=== PATIENT | female | born 1975 | race Two or more races ===

== ENCOUNTER 2017-05-03 14:35 | Inpatient (IN) ==
[2017-05-03 14:59] LABS: Basophils % 0.4 % (0.0-0.8); Eosinophils # 0.2 10*3/uL (0.0-0.87); Eosinophils % 3.4 % (0.00-10.9); Hematocrit 40.7 VOL% (35.7-47.0); Hemoglobin 13.7 GM/DL (12.0-16.0); Immature Granulocytes % 0.3 %; Immature Granulocytes Absolute 0.02 #; Lymphocytes # 2.3 10*3/uL (1.4-4.0); Lymphocytes % 33.3 % (21.3-54.2); Mean Corpuscular HGB Conc 33.7 GM/DL (32-36); Mean Corpuscular Hemoglobin 30 PG (27-34); Mean Corpuscular Volume 88.7 FL (87-102); Mean Platelet Volume 10.8 FL (9.6-12.0); Monocytes # 0.4 10*3/uL (0.11-0.8); Monocytes % 6.5 % (1.7-12.7); Neutrophils # 3.8 10*3/uL (1.4-7.4); Neutrophils % 56.1 % (38.7-73.9); Platelet Count 193 T/CUMM (130-400); Red Blood Count 4.59 MC/CUMM (3.8-5.5); Red Cell Distribution Width 14.6 % (9.3-17.3); White Blood Count 6.8 T/CUMM (4-12)
[2017-05-03 15:18] LABS: Alanine Aminotransferase 14 U/L (13-56); Albumin 2.9 G/DL (3.4-5.0); Alkaline Phosphatase 69 U/L (45-117); Aspartate Amino Transferase 13 U/L (0-37); Bilirubin,Total < 0.39 MG/DL (0.2-1.0); Blood Urea Nitrogen 7 MG/DL (7-18); Calcium 8.3 MG/DL (8.5-10.1); Glucose 85 MG/DL (74-106); Osmolality,Calculated 275.4 MOS/KG (273-304); Potassium 3.6 MMOL/L (3.5-5.1); Sodium 140 MMOL/L (136-145); Total Protein 6.7 G/DL (6.4-8.3)
[2017-05-03 15:18] LABS: Apearance,Urine CLEAR (Clear); Bacteria,Urine Occasional /HPF (Few); Bilirubin,Urine Negative (Negative); Blood, Urine Negative (Negative); Glucose,Urine (UA) Negative (Negative); Ketones,Urine Negative (Negative); Nitrite,Urine Negative (Negative); Protein,Urine Negative; RBC,Urine <1 /HPF (0-4); Squamous Epithelial Cell,Urine Occasional /HPF (0-10); Urine Color Straw (Yellow); Urine Specific Gravity 1.002 (1.001-1.035); Urine Urobilinogen < 2.0 EU/DL (0.2-1.0); WBC,Urine <1 /HPF (0-6)
--- NOTE | 2017-05-03 15:35 | CT Report ---
Exam: CT abdomen and pelvis without intravenous contrast Clinical History: 41 years,Female, abdominal pain, generalized Technique: Axial computed tomography images of the abdomen and pelvis without intravenous contrast. All CT scans at this facility use one or more dose reduction techniques. Automated exposure control, MA/KV adjustment per patient size (including targeted exam Square dose is matched to indication) or iterative reconstruction technique Comparison: No relevant comparisons Findings: Lower thorax: No acute pathology within the lung bases. Abdomen: Liver: Unremarkable Gallbladder and bile ducts: Unremarkable. No calcified stones. No ductal dilatation. Pancreas: Pancreas is normal. Spleen: Spleen is normal. Adrenals: No adrenal mass. Kidneys and ureters: Normal in size, echotexture and morphology. No hydronephrosis. No ureteral calculus. Stomach and bowel: No evidence of acute gastritis, colitis or enteritis. No bowel obstruction. Appendix: No primary or secondary signs to suggest appendicitis. Pelvis: Bladder: Bladder stones are noted Reproductive: 3.4 cm cyst arising from the right ovary. Abdomen and pelvis: Intraperitoneal space: No pneumoperitoneum. No free intraperitoneal fluid Bones/joints: Villa rods and pedicular screws transfix thoracolumbar junction with stabilized L2 fracture, uncomplicated. Soft tissues: No mass Vasculature: No aortic aneurysm. Atheromatous calcifications noted along the aorta and branch vessels. Lymph nodes: No adenopathy Impression: 1. 3.4 cm right ovarian cyst 2. Urinary bladder stones 3. Other incidental findings as discussed above PROCEDURE INTERPRETED AT [facility] [place] DEPARTMENT OF RADIOLOGY Final Report Signed by: Amaury Cavanaugh MD
--- NOTE | 2017-05-03 15:37 | XRay Report ---
XR chest 1V portable Indication: Generalized abdominal pain Comparison: None Technique: Single frontal view of the chest. Findings: Heart size within normal limits. No focal consolidation, pleural effusion, or pneumothorax. Visualized osseous and surrounding soft tissue structures demonstrate no acute abnormality. Partially visualized thoracolumbar hardware. IMPRESSION: No acute cardiopulmonary process demonstrated. PROCEDURE INTERPRETED AT [facility] DEPARTMENT OF RADIOLOGY Final Report Signed by: Dr Waylon Hunter
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
[2017-05-03] MEDS ORDERED: ONDANSETRON 4 MG/2 ML VIAL ONE (15:52)
[2017-05-03] MEDS ORDERED: ONDANSETRON 4 MG/2 ML VIAL IV STA (15:53)
--- NOTE | 2017-05-03 16:27 | Ultrasound Report ---
US gallbladder Indication: Right upper quadrant/epigastric pain. Comparison: None. Technique: Multiple longitudinal and transverse real-time sonographic images of the right upper quadrant of the abdomen are obtained. Findings: The liver measures 14.2 cm and demonstrates normal echogenicity without focal abnormality on submitted images. Small-volume cholelithiasis noted. There is no significant gallbladder wall thickening or distention.. The common duct measures 0.5 cm in diameter and there is no evidence of significant intrahepatic ductal dilation. Right kidney measures 9.7 cm. Pancreas partially obscured. IMPRESSION: Cholelithiasis. PROCEDURE INTERPRETED AT [facility] DEPARTMENT OF RADIOLOGY Final Report Signed by: Dr Waylon Hunter
--- NOTE | 2017-05-03 19:44 | Nuclear Medicine Report ---
Exam: Nuclear medicine hepatobiliary scan Date: May 03, 2017 Comparison: None Reason: Severe right upper quadrant pain. Known cholelithiasis Technique: The patient was administered 5.0 mCi of technetium 99m Choletec IV. Images of the right upper quadrant were then acquired over 90 minutes. Patient could not tolerate p.O. liquids. Findings: Diffuse symmetric uptake throughout the liver parenchyma. Visualization of the gallbladder and common bile duct at 10 minutes. No visualization of bowel at the 90 minute interval. Impression: 1. Radiotracer accumulation is seen within the gallbladder, suggesting patency of the cystic duct. 2. No demonstratable bowel activity at 90 minutes. Findings may represent biliary dyskinesia and or possibly distal obstruction. 12 hour image will be obtained PROCEDURE INTERPRETED AT [facility] DEPARTMENT OF RADIOLOGY Final Report Signed by: Amaury Cavanaugh MD
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
[2017-05-03] MEDS ORDERED: HYDROmorphone 2 MG/1 ML VIAL IV STA (20:12)
[2017-05-03] MEDS ORDERED: HYDROmorphone 2 MG/1 ML VIAL ONE (20:13)
[2017-05-03] MEDS ORDERED: fentaNYL 75 MCG/HR PATCH TRANSDERM SCH (21:00)
[2017-05-03] MEDS ORDERED: ONDANSETRON 4 MG/2 ML VIAL IV PRN (21:39)
[2017-05-03] MEDS ORDERED: ACETAMINOPHEN 325 MG TABLET PO PRN (21:39)
[2017-05-03] MEDS: BACLOFEN 10 MG TABLET PO SCH (22:15)
[2017-05-03] MEDS: PREGABALIN 100 MG CAPSULE PO SCH (22:15)
[2017-05-03] MEDS: oxyCODONE/ACETAMINOPHEN 5-325 MG TABLET PO SCH (22:15)
[2017-05-03] MEDS: LACTATED RINGERS 1,000 ML IV SCH (22:22)
[2017-05-03] MEDS: PIPERACILLIN/TAZOBACTAM 3,375 MG in SODIUM CHLORIDE 0.9% 100 ML IV SCH (22:57)
[2017-05-04] MEDS: ALBUTEROL/IPRATROPIUM 3 ML NEB RESP TX SCH ×4 (00:10→19:56)
[2017-05-04] MEDS ORDERED: FAMOTIDINE 20 MG TABLET PO ONE (05:42)
[2017-05-04] MEDS ORDERED: LORazepam 1 MG TABLET PO ONE (05:42)
[2017-05-04] MEDS ORDERED: ACETAMINOPHEN 500 MG TABLET PO ONE (05:43)
[2017-05-04] MEDS ORDERED: GABAPENTIN 400 MG CAPSULE PO ONE (06:00)
[2017-05-04] MEDS: PIPERACILLIN/TAZOBACTAM 3,375 MG in SODIUM CHLORIDE 0.9% 100 ML IV SCH ×3 (06:12→23:50)
[2017-05-04] MEDS: HYDROmorphone 2 MG/1 ML VIAL IV PRN ×2 (06:12→09:58)
[2017-05-04 06:24] LABS: Basophils % 0.1 % (0.0-0.8); Eosinophils # 0.1 10*3/uL (0.0-0.87); Eosinophils % 1.6 % (0.00-10.9); Hematocrit 42.2 VOL% (35.7-47.0); Hemoglobin 14.1 GM/DL (12.0-16.0); Immature Granulocytes % 0.3 %; Immature Granulocytes Absolute 0.02 #; Lymphocytes # 2.4 10*3/uL (1.4-4.0); Lymphocytes % 33.8 % (21.3-54.2); Mean Corpuscular HGB Conc 33.4 GM/DL (32-36); Mean Corpuscular Hemoglobin 30 PG (27-34); Mean Corpuscular Volume 89.2 FL (87-102); Mean Platelet Volume 11.4 FL (9.6-12.0); Monocytes # 0.4 10*3/uL (0.11-0.8); Neutrophils # 4.1 10*3/uL (1.4-7.4); Neutrophils % 58.2 % (38.7-73.9); Platelet Count 200 T/CUMM (130-400); Red Blood Count 4.73 MC/CUMM (3.8-5.5); Red Cell Distribution Width 14.8 % (9.3-17.3)
[2017-05-04 07:09] LABS: Albumin 3.1 G/DL (3.4-5.0); Bilirubin,Total 0.6 MG/DL (0.2-1.0); Calcium 8.6 MG/DL (8.5-10.1); Magnesium 1.9 MG/DL (1.8-2.4); Osmolality,Calculated 275.4 MOS/KG (273-304); Potassium 3.9 MMOL/L (3.5-5.1); Total Protein 6.7 G/DL (6.4-8.3)
--- NOTE | 2017-05-04 08:14 | Nuclear Medicine Report ---
History: Abdominal pain Date: 05/04/2017 Study: Nuclear medicine biliary scan delayed imaging Comparison exam: 05/03/2017 biliary scan A 15 hour delayed image was acquired over the upper abdomen. There is radiotracer within the intestinal tract compatible with patency of the common bile duct. There is still a significant amount of residual radiotracer within the gallbladder. Impression: Contrast material is present within the intestinal tract compatible with gross patency of the common bile duct PROCEDURE INTERPRETED AT [facility] DEPARTMENT OF RADIOLOGY Final Report Signed by: Dr. Manju Alva
--- NOTE | 2017-05-04 08:20 | XRay Report ---
History: Abdominal pain Date: 05/04/2017 Study: Flat and decubitus views of the abdomen Comparison exam: Abdominal x-ray April 06, 2017 There is no evidence of pneumoperitoneum. The bowel gas pattern is nonobstructive without gross mass lesion. There is a moderate amount of scattered stool in the normal caliber colon. No radiopaque calculi are seen. Surgical rods overlie the thoracolumbar spine. There is prominent degenerative disc disease at L4-L5. Impression: No definite acute process. Moderate amount of retained stool in the colon PROCEDURE INTERPRETED AT [facility] DEPARTMENT OF RADIOLOGY Final Report Signed by: Dr. Manju Alva
[2017-05-04] MEDS: FLUoxetine 20 MG CAPSULE PO SCH (08:28)
[2017-05-04] MEDS: oxyCODONE/ACETAMINOPHEN 5-325 MG TABLET PO SCH ×3 (08:28→20:52)
[2017-05-04] MEDS: BACLOFEN 10 MG TABLET PO SCH ×3 (08:28→20:52)
[2017-05-04] MEDS: PREGABALIN 100 MG CAPSULE PO SCH ×3 (08:28→20:52)
[2017-05-04] MEDS ORDERED: HYDROmorphone 2 MG/1 ML VIAL IV PRN (09:49)
[2017-05-04] MEDS: PANTOPRAZOLE 40 MG VIAL IV SCH (12:03)
[2017-05-04] MEDS: LACTATED RINGERS 1,000 ML IV SCH ×2 (12:04→13:49)
[2017-05-04] MEDS ORDERED: LIDOCAINE 1%/EPI INJ 20 ML VIAL ONE (13:14)
[2017-05-04] MEDS ORDERED: ONDANSETRON 4 MG/2 ML VIAL ONE (13:31)
[2017-05-04] MEDS ORDERED: ROCURONIUM 100 MG/10 ML VIAL IV ONE (13:31)
[2017-05-04] MEDS ORDERED: PROPOFOL 200 MG/20 ML VIAL IV ONE (13:31)
[2017-05-04] MEDS ORDERED: ACETAMINOPHEN 1,000 MG/100 ML VIAL IV ONE (13:46)
[2017-05-04] MEDS ORDERED: ENOXAPARIN 40 MG/0.4 ML SYRINGE SUBCUT SCH (14:00)
[2017-05-04] MEDS ORDERED: SUGAMMADEX 200 MG/2 ML VIAL IV ONE (14:18)
--- NOTE | 2017-05-04 14:33 | Operative Note ---
Date of procedure: 05/04/17 Pre-op diagnosis: Symptomatic cholelithiasis Post-op diagnosis: same (Same) Procedure: Procedure performed: Laparoscopic cholecystectomy with intraoperative cholangiogram next Procedure in detail: After informed consent was obtained, patient taken operating suite lies upon the operating table. After general anesthesia was induced the abdomen was prepped and draped in usual sterile fashion. A procedural pause local anesthetic and strength skin subcutaneous tissue just above the umbilicus. Incision was made and dissection carried down through skin and soft tissue. Fascia grasped with Lodi's and elevated. Fascial incision was made. Abdominal cavity was entered bluntly. Finger sweep revealed no adhesions. Chandra trocar placed under direct visualization. Pneumoperitoneum achieved. The camera inserted bowel mesentery inspected found to be free of any violation. Next the patient was placed in reverse Trendelenburg position rotated to the left. 2 5 mm trochars placed in the right upper quadrant 11 mm subxiphoid trocar was placed all under visualization. The gallbladder was grasped and retracted superiorly. Did not appear to be acutely inflamed. Infundibulum the gallbladder retracted toward the right hip. Within the gallbladder multiple stones were visible. Dissection was carried out from lateral to medial approach and the triangle of Jesús and the cystic duct and cystic artery were identified and isolated. Using a critical view technique these only 2 structures entering the gallbladder. A clip was placed the junction of the cystic duct neck of the gallbladder and partial transection made on the cystic duct. Cholangiocatheter catheter initially had difficulty going in and out Milt back at least 3 or 4 stones from the cystic duct. I was then able to get the catheter to be inserted easily and secured it in place. Intraoperative glandular and performed. Cystic duct common bile duct intra-and extrahepatic ducts all filled with no filling defects identified. Contrast was seen entering the small bowel. The common and intrahepatic ducts did fill appear slightly dilated. There did not appear to be a mass-effect or any occlusion of the cystic duct. The cholangiocatheter was removed and 2 clips placed on the cystic duct just distal to the partial transection the transection completed. Cystic artery was triple clipped and transected how long the gallbladder wall. Gallbladder was then removed from gallbladder fossa using hook cautery and placed in Endo Catch sac removed to the Chandra trocar site. Pneumoperitoneum was reachieved and right upper quadrant thoroughly irrigated and suctioned. The clips inspected found to be intact no leakage of bilious or sanguinous fluid. There is excellent hemostasis. The trochars were removed as the abdomen desufflated. Fascia at the Chandra trocar site closed using 0 Vicryl [id number] interrupted suture. Wounds were thoroughly irrigated and suction. The deep dermal layer closed with 3-0 Vicryl. 4-0 Monocryl used to close skin. Sterile dressings applied. Patient was extubated and taken recovery room in stable condition. All lap and needle counts correct at the end of the case. Anesthesia: GETA Surgeon / Physician: Yang Valladares Estimated blood loss: other (Less than 10 cc) Specimens: other (Gallbladder) Condition: stable Disposition: PACU Results - Labs CBC & BMP: 05/04/17 05:32 05/04/17 05:32 Discharge Plan - Discharge Medications No Action Pregabalin [Lyrica] 200 mg PO TID Oxycodone HCl/Acetaminophen [Oxycodone-Acetaminophen 10-325] 1 tablet PO TID Baclofen [Baclofen] 10 mg PO TID fentaNYL [Fentanyl 75 mcg/hr Patch] 1 patch TOP Q72H Fluoxetine HCl [Fluoxetine HCl] 40 mg PO QAM - Follow Up or Referral - Forms/Instructions
[2017-05-04] MEDS ORDERED: SEVOFLURANE 1 UNIT/15 MINUTE INH ONE (14:42)
[2017-05-04] MEDS ORDERED: HYDROmorphone 2 MG/1 ML VIAL ONE (14:42)
[2017-05-04] MEDS ORDERED: fentaNYL 100 MCG/2 ML VIAL ONE (14:43)
[2017-05-04] MEDS ORDERED: LACTATED RINGERS 1,000 ML IV ONE (14:43)
[2017-05-04] MEDS ORDERED: MIDAZOLAM 2 MG/2 ML VIAL ONE (14:43)
--- NOTE | 2017-05-04 14:55 | Anesthesia Post-Op ---
Anesthesia Post OP - Post Ansesthetic Evaluation Patient seen in post op: Yes Resp: within normal limits CV: within normal limits Mental: within normal limits Temp: within normal limits [id number]: within normal limits Nausea and Vomiting: within normal limits Pain: within normal limits
--- NOTE | 2017-05-04 16:31 | Fluoroscopy Report ---
Cholangiogram May 04, 2017 Indication: Right upper quadrant pain, postcholecystectomy Comparison: No relevant comparisons Technique: Interoperative cholangiogram was performed in routine fashion after cannulation of the cystic duct. Fluoroscopy time recorded at 34 seconds. Radiation dose calculated 0.347 mGym2 Findings: Contrast flows freely through the dilated common bile duct tapering normally to the ampulla. No intraluminal filling defects. No extravasation. Impression: Mildly dilated common bile duct with no evidence of ductal stones or distal obstruction. PROCEDURE INTERPRETED AT [facility] DEPARTMENT OF RADIOLOGY Final Report Signed by: Amaury Cavanaugh MD
[2017-05-05] MEDS: ALBUTEROL/IPRATROPIUM 3 ML NEB RESP TX SCH ×2 (00:05→07:05)
[2017-05-05] MEDS: LACTATED RINGERS 1,000 ML IV SCH ×2 (05:55→05:56)
[2017-05-05] MEDS: PIPERACILLIN/TAZOBACTAM 3,375 MG in SODIUM CHLORIDE 0.9% 100 ML IV SCH (07:23)
[2017-05-05 07:45] VITALS: BP 126/75
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
[2017-05-05] MEDS: BACLOFEN 10 MG TABLET PO SCH (08:16)
[2017-05-05] MEDS: FLUoxetine 20 MG CAPSULE PO SCH (08:16)
[2017-05-05] MEDS: oxyCODONE/ACETAMINOPHEN 5-325 MG TABLET PO SCH (08:16)
[2017-05-05] MEDS: PREGABALIN 100 MG CAPSULE PO SCH (08:17)
[2017-05-05] MEDS: PANTOPRAZOLE 40 MG VIAL IV SCH (08:18)
[2017-05-05] MEDS ORDERED: ENOXAPARIN 40 MG/0.4 ML SYRINGE SUBCUT SCH (09:00)
--- NOTE | 2017-05-05 09:53 | Discharge Summary ---
Hospital Course - Hospital Course Hospital Course: The patient is a 41-year-old paraplegic patient admitted with symptomatic cholelithiasis who underwent lap scopic cholecystectomy with intraoperative cholangiogram with Dr. Valladares on May 04, 2017. Postoperatively, her hospital course was uneventful. She was tolerating oral intake with appropriate pain management the time of discharge. She is passing flatus. She is confident that her son to care for her can continue to care for her current condition. She is provided with postoperative instructions and postoperative appointment. She was discharged home in good condition. No complicate to note. Diagnosis - Discharge Diagnosis (1) Cholelithiasis Status: Acute Specialty Discharge - Follow Up or Referrals Follow up with: Yang Valladares MD [Physician] - 05/18/17 9:30 am (2 wks) Discharge Plan - Discharge Data Disposition: Disch To Home/Self Care Condition at Discharge: Stable Discharge Diet: advance to your usual diet Activity: no lifting (Greater than 10-15 pound) Hygiene: may shower Contact your physician if you experience:: fever over 101, Redness or swelling, Nausea/Vomiting, Shortness of breath, Bleeding, pain uncontrolled by pain medications Wound / Dressing Care Instructions: Keep surgical incisions clean, dry and covered - Discharge Medications Continue Pregabalin [Lyrica] 200 mg PO TID Oxycodone HCl/Acetaminophen [Oxycodone-Acetaminophen 10-325] 1 tablet PO TID Baclofen 10 mg PO TID fentaNYL [Fentanyl 75 mcg/hr Patch] 1 patch TOP Q72H Fluoxetine HCl 40 mg PO QAM - Follow Up or Referral Follow Up: Yang Valladares MD [Physician] - 05/18/17 9:30 am (2 wks) - Forms/Instructions Instructions: Laparoscopic Cholecystectomy (DC) Exam - Constitutional Vitals: Period Temp Pulse Resp BP Sys/Obrien Pulse Ox Last 24 Hr 97.3 F-98.3 F 58-97 12-20 126-163/72-96 95-100 General appearance: no acute distress - Eye Eye exam: Absent: scleral icterus - Respiratory Respiratory exam: Present: clear to auscultation bilaterally - Cardiovascular Cardiovascular exam: Present: regular rate and rhythm - GI/Abdominal GI/Abdominal exam: Present: hypoactive bowel sounds, tenderness (Appropriate postoperative tenderness), soft, other (Surgical incisions are clean, dry and intact). Absent: distended - Extremities Exam Extremities exam: Absent: calf tenderness, edema - Neurological Exam Neurological exam: Present: alert, oriented X3 - Psychiatric Psychiatric exam: Present: normal affect, normal mood - Skin Skin exam: Present: normal color Discharge Results Procedures and tests throughout hospitalization: Laparoscopic cholecystectomy with intraoperative cholangiogram on 05/04/[address] Valladares; pathology pending at the time of discharge - Imaging and Cardiology Procedure: Chest x-ray: image reviewed by me, report reviewed by me (No acute findings), CT Abdomen and Pelvis: image reviewed by me, report reviewed by me ( Right ovarian cyst incidentally noted; no gallbladder findings identified), Ultrasound: report reviewed by me (Gallbladder ultrasound identified gallstones ; no gallbladder wall thickening or distention. Common bile duct measured at 0.5 cm without evidence of dilation.) - Additional Comments HIDA scan with findings suggestive of biliary dyskinesia. DS: Provider Date of admission: 05/03/17 19:58 Primary care physician: . No PCP Attending physician on admission: Yang Valladares MD Consults: 05/03/17 21:39 Consult to Case Mgmt/Social Srvs [CONS] Routine Reason for Case Mgmt/Social Srvs: Rehab Other Consult Comment: Home situation Consult to Physical Therapy [CONS] Routine Reason for Physical Therapy: Weakness 05/05/17 07:36 Consult to Case Mgmt/Social Srvs [CONS] Routine Reason for Case Mgmt/Social Srvs: Home Health Discharge Planning Consult Comment: patient needs transportation home today Discharging clinician: Jasmyn Lou PA-C
[2017-05-05] MEDS ORDERED: INFLUENZA VIRUS VACCINE 0.5 ML SYRINGE IM ONE (11:10)
--- NOTE | 2017-05-05 11:25 | Pathology Report from [facility] ---
[facility] – [place] ACCESSION # : [id number] PATIENT NAME : Benita Armstrong ORDERING DR : Yang Valladares MD CLINICAL HX: Bliary dyskinesia - Cholecystitis POST-OP DX: Same SPECIMEN INFO: Gallbladder GROSS DESCRIPTION: The specimen is received in formalin labeled with the patients name and consists of a 9.1 x 2.8 cm intact gallbladder. The serosa is pink-abel, smooth. The wall averages 0.2 cm in thickness. The mucosa is hyperemic, yellow-abel. The lumen contains hyperemic viscous yellow-green bile admixed with multiple lobulated yellow stones collectively measuring 4.0 x 2.7 cm and ranging in size from 0.2 cm up to 0.5 cm. Dog [employer] Animal Sitter sections submitted in one cassette. DIAGNOSIS FOR BENITA ARMSTRONG: GALLBLADDER: Chronic cholecystitis. Cholelithiasis. Cholesterolosis. No evidence of malignancy. COLLECTED DATE: 05/04/2017 [facility] REPORT DATE: 05/05/2017 ELECTRONICALLY SIGNED BY: Silvia Johnson III, M.D. 05/05/2017 - 9:55:51 FERMÍN
== END 2017-05-05 13:05 | disposition home health service (06) | DRG 418 ==
LOC: EDBD → EDUNIT# → N.ED 14:35 → N.EDINP 19:58 → N.3E 21:03
PROVIDERS: ADMIT Surgery; ATTEND Surgery
PROC: LAPCHOL (2017-05-04 13:31)

== ENCOUNTER 2019-07-04 06:09 | Inpatient (IN) ==
[2019-07-04] MEDS ORDERED: SODIUM CHLORIDE 0.9% 1,000 ML IV STA ×2 (06:35→08:09)
[2019-07-04] MEDS ORDERED: ONDANSETRON 4 MG/2 ML VIAL ONE (06:35)
[2019-07-04] MEDS ORDERED: ONDANSETRON 4 MG/2 ML VIAL IV STA ×2 (06:35→08:31)
[2019-07-04 06:40] LABS: Basophils % 0.4 % (0.0-0.8); Eosinophils # 0.2 10*3/uL (0.0-0.87); Eosinophils % 3.2 % (0.00-10.9); Hematocrit 33.5 VOL% (35.7-47.0); Hemoglobin 10.4 GM/DL (12.0-16.0); Immature Granulocytes % 0.1 %; Immature Granulocytes Absolute 0.01 #; Lymphocytes # 2.3 10*3/uL (1.4-4.0); Mean Corpuscular Volume 80.7 FL (87-102); Mean Platelet Volume 10.6 FL (9.6-12.0); Monocytes % 8.5 % (1.7-12.7); Neutrophils % 53.8 % (38.7-73.9); Platelet Count 258 T/CUMM (130-400); Red Blood Count 4.15 MC/CUMM (3.8-5.5); Red Cell Distribution Width 16.8 % (9.3-17.3); White Blood Count 6.8 T/CUMM (4-12)
[2019-07-04 06:52] LABS: Alanine Aminotransferase 17 U/L (13-56); Albumin 3.1 G/DL (3.4-5.0); Alkaline Phosphatase 68 U/L (45-117); Aspartate Amino Transferase 10 U/L (0-37); Bilirubin,Total < 0.39 MG/DL (0.2-1.0); Blood Urea Nitrogen 11 MG/DL (7-18); Calcium 7.9 MG/DL (8.5-10.1); Estimated Glom Filtration Rate 124 ML/MIN; Glucose 94 MG/DL (74-106); Osmolality,Calculated 281.1 MOS/KG (273-304)
[2019-07-04 07:06] LABS: Apearance,Urine CLEAR (Clear); Bacteria,Urine Many /HPF (Few); Bilirubin,Urine Negative (Negative); Blood, Urine Moderate mg/dL (Negative); Glucose,Urine (UA) Negative (Negative); Hyaline Casts,Urine 1 /LPF (0-3); Ketones,Urine 20 mg/dL (Negative); Mucus,Urine Occasional /LPF (Occasional); Nitrite,Urine Positive (Negative); Protein,Urine 100 MG/DL; RBC,Urine 274 /HPF (0-4); Squamous Epithelial Cell,Urine Occasional /HPF (0-10); Urine Color Yellow (Yellow); Urine Specific Gravity 1.013 (1.001-1.035); Urine Urobilinogen < 2.0 EU/DL (0.2-1.0); WBC,Urine 10 /HPF (0-6)
[2019-07-04] MEDS ORDERED: cefTRIAXone 1,000 MG in SODIUM CHLORIDE 0.9% 100 ML IV STA (08:10)
[2019-07-04] MEDS ORDERED: ACETAMINOPHEN 325 MG TABLET PO PRN (08:53)
[2019-07-04] MEDS: ENOXAPARIN 40 MG/0.4 ML SYRINGE SUBCUT SCH (10:23)
[2019-07-04] MEDS: SODIUM CHLORIDE 0.9% 1,000 ML IV SCH ×2 (10:24→17:27)
[2019-07-04] MEDS: MEROPENEM 500 MG in SODIUM CHLORIDE 0.9% 100 ML IV SCH ×2 (10:24→19:16)
[2019-07-04] MEDS ORDERED: PREGABALIN 100 MG CAPSULE PO ONE (13:40)
[2019-07-04] MEDS: POLYETHYLENE GLYCOL POWDER 17 GM PACK PO SCH (14:11)
[2019-07-04] MEDS: PREGABALIN 100 MG CAPSULE PO SCH ×2 (14:11→20:32)
[2019-07-04] MEDS: NICOTINE 21 MG/24 HR PATCH TRANSDERM PRN (14:12)
[2019-07-04] MEDS: ONDANSETRON 4 MG/2 ML VIAL IV PRN ×2 (15:29→20:30)
[2019-07-04] MEDS: BACLOFEN 10 MG TABLET PO SCH (20:32)
[2019-07-04] MEDS: PROMETHAZINE 25 MG/1 ML VIAL IM PRN (22:08)
[2019-07-05] MEDS: MEROPENEM 500 MG in SODIUM CHLORIDE 0.9% 100 ML IV SCH ×3 (01:00→17:35)
[2019-07-05] MEDS: SODIUM CHLORIDE 0.9% 1,000 ML IV SCH ×3 (01:01→09:13)
[2019-07-05 05:25] LABS: Basophils % 0.4 % (0.0-0.8); Eosinophils # 0.2 10*3/uL (0.0-0.87); Eosinophils % 3.6 % (0.00-10.9); Hematocrit 30.6 VOL% (35.7-47.0); Hemoglobin 9.4 GM/DL (12.0-16.0); Immature Granulocytes % 0.2 %; Immature Granulocytes Absolute 0.01 #; Lymphocytes # 2.6 10*3/uL (1.4-4.0); Mean Corpuscular HGB Conc 30.7 GM/DL (32-36); Mean Corpuscular Volume 81.2 FL (87-102); Mean Platelet Volume 10.9 FL (9.6-12.0); Monocytes % 7.5 % (1.7-12.7); Neutrophils % 39.3 % (38.7-73.9); Platelet Count 235 T/CUMM (130-400); Red Blood Count 3.77 MC/CUMM (3.8-5.5); Red Cell Distribution Width 16.6 % (9.3-17.3); White Blood Count 5.3 T/CUMM (4-12)
[2019-07-05 05:48] LABS: % Iron Saturation 8.2 % (18-50); Ferritin 4.7 ng/ml (8-252)
[2019-07-05] MEDS ORDERED: ALBUTEROL 2.5 MG/3 ML NEB RESP TX ONE (07:33)
[2019-07-05] MEDS ORDERED: ALBUTEROL 2.5 MG/3 ML NEB RESP TX PRN (07:33)
[2019-07-05] MEDS: ENOXAPARIN 40 MG/0.4 ML SYRINGE SUBCUT SCH (09:08)
[2019-07-05] MEDS: BACLOFEN 10 MG TABLET PO SCH (09:08)
[2019-07-05] MEDS: PREGABALIN 100 MG CAPSULE PO SCH ×3 (09:08→20:09)
[2019-07-05] MEDS: POLYETHYLENE GLYCOL POWDER 17 GM PACK PO SCH (09:09)
[2019-07-05] MEDS: VANCOMYCIN INJ 1,000 MG in SODIUM CHLORIDE 0.9% 250 ML IV SCH ×2 (15:11→20:09)
[2019-07-05] MEDS: BACLOFEN 20 MG TABLET PO SCH ×2 (16:07→20:09)
[2019-07-06] MEDS: SODIUM CHLORIDE 0.9% 1,000 ML IV SCH (00:45)
[2019-07-06] MEDS: MEROPENEM 500 MG in SODIUM CHLORIDE 0.9% 100 ML IV SCH ×3 (00:46→17:17)
[2019-07-06 04:46] LABS: Basophils % 0.4 % (0.0-0.8); Eosinophils # 0.2 10*3/uL (0.0-0.87); Eosinophils % 2.7 % (0.00-10.9); Hematocrit 31.3 VOL% (35.7-47.0); Hemoglobin 9.7 GM/DL (12.0-16.0); Immature Granulocytes % 0.2 %; Immature Granulocytes Absolute 0.01 #; Lymphocytes # 1.9 10*3/uL (1.4-4.0); Lymphocytes % 33.3 % (21.3-54.2); Mean Corpuscular Volume 78.8 FL (87-102); Mean Platelet Volume 10.8 FL (9.6-12.0); Monocytes % 7.9 % (1.7-12.7); Neutrophils % 55.5 % (38.7-73.9); Platelet Count 242 T/CUMM (130-400); Red Blood Count 3.97 MC/CUMM (3.8-5.5); Red Cell Distribution Width 16.5 % (9.3-17.3); White Blood Count 5.6 T/CUMM (4-12)
[2019-07-06] MEDS: VANCOMYCIN INJ 1,000 MG in SODIUM CHLORIDE 0.9% 250 ML IV SCH ×3 (05:01→21:06)
[2019-07-06 05:13] LABS: Calcium 7.8 MG/DL (8.5-10.1); Osmolality,Calculated 276.3 MOS/KG (273-304)
[2019-07-06] MEDS ORDERED: POTASSIUM CHLORIDE 20 MEQ TABLET PO ONE (08:23)
[2019-07-06] MEDS ORDERED: MAGNESIUM SULF RIDER 4 GM in PREMIX 1 EACH IV PRN (08:23)
[2019-07-06] MEDS ORDERED: MAGNESIUM SULF RIDER 2 GM in PREMIX 1 EACH IV PRN (08:23)
[2019-07-06] MEDS: BACLOFEN 20 MG TABLET PO SCH ×3 (09:37→21:06)
[2019-07-06] MEDS: PREGABALIN 100 MG CAPSULE PO SCH ×3 (09:37→21:06)
[2019-07-06] MEDS: ENOXAPARIN 40 MG/0.4 ML SYRINGE SUBCUT SCH (09:38)
[2019-07-06] MEDS: POLYETHYLENE GLYCOL POWDER 17 GM PACK PO SCH (09:39)
[2019-07-06] MEDS: oxyCODONE/ACETAMINOPHEN 5-325 MG TABLET PO PRN (09:47)
[2019-07-06] MEDS: ONDANSETRON 4 MG/2 ML VIAL IV PRN ×2 (09:48→21:18)
[2019-07-06] MEDS: NICOTINE 21 MG/24 HR PATCH TRANSDERM PRN (13:11)
[2019-07-06] MEDS: PROMETHAZINE 25 MG/1 ML VIAL IM PRN (23:04)
[2019-07-07] MEDS: MEROPENEM 500 MG in SODIUM CHLORIDE 0.9% 100 ML IV SCH ×3 (00:23→17:12)
[2019-07-07 05:27] LABS: Calcium 7.7 MG/DL (8.5-10.1); Osmolality,Calculated 278.3 MOS/KG (273-304)
[2019-07-07] MEDS: VANCOMYCIN INJ 1,000 MG in SODIUM CHLORIDE 0.9% 250 ML IV SCH ×3 (06:01→21:11)
[2019-07-07] MEDS: FERROUS SULFATE 325 MG TABLET PO SCH ×2 (08:56→21:11)
[2019-07-07] MEDS: PREGABALIN 100 MG CAPSULE PO SCH ×3 (08:56→21:09)
[2019-07-07] MEDS: ENOXAPARIN 40 MG/0.4 ML SYRINGE SUBCUT SCH (08:56)
[2019-07-07] MEDS: BACLOFEN 20 MG TABLET PO SCH ×3 (08:56→21:09)
[2019-07-07] MEDS: POLYETHYLENE GLYCOL POWDER 17 GM PACK PO SCH (08:56)
[2019-07-07] MEDS: oxyCODONE/ACETAMINOPHEN 5-325 MG TABLET PO PRN ×2 (12:26→21:17)
[2019-07-07] MEDS: NICOTINE 21 MG/24 HR PATCH TRANSDERM PRN (14:06)
[2019-07-08] MEDS: MEROPENEM 500 MG in SODIUM CHLORIDE 0.9% 100 ML IV SCH ×2 (01:52→09:51)
[2019-07-08] MEDS: oxyCODONE/ACETAMINOPHEN 5-325 MG TABLET PO PRN ×2 (02:47→09:55)
[2019-07-08] MEDS: VANCOMYCIN INJ 1,000 MG in SODIUM CHLORIDE 0.9% 250 ML IV SCH (04:42)
[2019-07-08] MEDS ORDERED: LINEZOLID 600 MG TABLET PO SCH (09:00)
[2019-07-08] MEDS: NICOTINE 21 MG/24 HR PATCH TRANSDERM PRN (09:50)
[2019-07-08] MEDS: POLYETHYLENE GLYCOL POWDER 17 GM PACK PO SCH (09:51)
[2019-07-08] MEDS: FERROUS SULFATE 325 MG TABLET PO SCH (09:51)
[2019-07-08] MEDS: BACLOFEN 20 MG TABLET PO SCH (09:51)
[2019-07-08] MEDS: PREGABALIN 100 MG CAPSULE PO SCH (09:51)
[2019-07-08] MEDS: ENOXAPARIN 40 MG/0.4 ML SYRINGE SUBCUT SCH (09:51)
[2019-07-08 11:49] VITALS: BP 122/76
== END 2019-07-08 12:10 | disposition home health service (06) | DRG 690 ==
LOC: EDBD → EDUNIT# → N.ED 06:09 → N.EDINP 08:53 → N.5E 12:17
PROVIDERS: ADMIT Internal Medicine; ATTEND Internal Medicine